=== PATIENT | male | born 1970 | race Hispanic/Latino ===

== ENCOUNTER 2024-12-21 21:17 | Inpatient (IN) | payer BC ==
[2024-12-21] MEDS ORDERED: Acetaminophen 325 MG TAB PO PRN (22:36)
[2024-12-21] MEDS ORDERED: Ondansetron PF 4 MG/2 ML Vial IVP PRN (22:36)
[2024-12-22 04:56] LABS: #Basophils 0.05 10x3/uL (0.0-0.2); #Eosinophils 0.58 10x3/uL (0.0-0.7); #Monocytes 0.76 10x3/uL (0.11-0.59); #Neutrophils 3.03 10x3/uL (1.40-6.50); %Basophils 0.8 % (0.0-1.0); %Eosinophils 8.7 % (0.0-10.0); %Lymphocytes 33.3 % (21.0-51.0); %Monocytes 11.4 % (0.0-10.0); %Neutrophils 45.6 % (42.0-75.0); Hematocrit 40.3 % (42.0-52.0); Hemoglobin 13.3 g/dL (14.0-18.0); Mean Corpuscular Hemoglobin 29.0 pg (27.0-31.0); Mean Corpuscular Volume 87.8 fL (78.0-98.0); Platelet Count 291 10x3/uL (130-400); Red Blood Cell (RBC) Count 4.59 mill/uL (4.70-6.10); White Blood Cell (WBC) Count 6.64 10x3/uL (4.8-10.8)
[2024-12-22 05:28] LABS: Anion Gap 12 mmol/L (10-20); BUN (Urea Nitrogen) 15 mg/dL (8.4-25.7); Calc. Creatinine Clearance 64 mL/min (70-130); Calcium 8.7 mg/dL (7.8-10.44); Carbon Dioxide 25 mmol/L (22-29); Chloride 106 mmol/L (98-107); Glucose 91 mg/dL (70-105); Potassium 4.3 mmol/L (3.5-5.1); Sodium 139 mmol/L (136-145)
[2024-12-22] MEDS: HYDROcodone/Acetaminophen 7.5/325 mg Tablet PO PRN (05:53)
[2024-12-22] MEDS: Losartan 25 MG TAB PO SCH (09:07)
[2024-12-22 11:33] VITALS: BP 146/88; TEMP 98
== END 2024-12-22 14:18 | disposition home or self-care (01) | DRG 694 ==
LOC: SURG A 21:17 → OBSVTOIN 12-22 09:46
PROVIDERS: ADMIT Internal Medicine; ATTEND Internal Medicine
DX: N13.2 Hydronephrosis with renal and ureteral calculous obstruction (principal); N17.9 Acute kidney failure, unspecified; N18.2 Chronic kidney disease, stage 2 (mild); Z91.013 Allergy to seafood; I12.9 Hypertensive chronic kidney disease with stage 1 through stage 4 chronic kidney disease, or unspecified chronic kidney disease; Z98.890 Other specified postprocedural states; Z79.899 Other long term (current) drug therapy; Z87.891 Personal history of nicotine dependence
CPT/HCPCS: 36415; 74018; 80048; 85025; G0378; J7030

== ENCOUNTER 2025-04-05 16:40 | Emergency (ER) | payer BC ==
[2025-04-05] MEDS ORDERED: Ibuprofen 800 MG TAB ONE (20:40)
== END 2025-04-05 20:43 | disposition home or self-care (01) ==
LOC: ERS 16:40
DX: M25.561 Pain in right knee (principal); I10 Essential (primary) hypertension; Z79.899 Other long term (current) drug therapy; Z75.3 Unavailability and inaccessibility of health-care facilities